=== PATIENT | female | born 1985 | race Caucasian/White ===

== ENCOUNTER 2017-04-02 22:51 | Emergency (ER) | payer BC ==
[~2017-04-02] VITALS: Ht 160 cm; Wt 70.3 kg
[2017-04-02] MEDS ORDERED: TACR5CAP4 PO (22:59)
[2017-04-02] MEDS ORDERED: PRED5PAK2 PO (22:59)
[2017-04-02] MEDS ORDERED: TOPR100T PO (22:59)
[2017-04-02] MEDS ORDERED: IMUR50TA PO (22:59)
[2017-04-02] MEDS ORDERED: MULT1TAB10 PO (22:59)
[2017-04-02] MEDS ORDERED: AMOX875T PO (22:59)
[2017-04-03 01:12] VITALS: BP 133/82
== END 2017-04-03 01:28 | disposition home or self-care (01) ==
LOC: M ED 04-03 00:43
DX: H61.21 Impacted cerumen, right ear (principal); J06.9 Acute upper respiratory infection, unspecified; Z94.0 Kidney transplant status; Z90.89 Acquired absence of other organs; Z79.899 Other long term (current) drug therapy; Z88.1 Allergy status to other antibiotic agents; Z88.5 Allergy status to narcotic agent; Z88.8 Allergy status to other drugs, medicaments and biological substances